=== PATIENT | male | born 1970 | race Caucasian/White ===

== ENCOUNTER 2024-06-07 05:38 | Emergency (ER) | payer BC, SELFPAY ==
[2024-06-07 05:42] VITALS: BP 126/94
[2024-06-07 06:28] VITALS: BMI 30.6
--- NOTE | 2024-06-07 07:05 | EDRN ---
Dr. Ross in room w/ pt at this time.
--- NOTE | 2024-06-07 07:14 | ED.GENMED ---
History of Present Illness
General
Chief Complaint: Cold/Flu/URI Symptoms
Source: patient
Exam Limitations: none
Time Seen by Provider: 06/07/24 06:45
Nursing documentation reviewed up to this point in time: agreed with
History of Present Illness
History of Present Illness:
54-year-old male with history of TBI who presents to the emergency department for evaluation of cough, congestion, chest pain. Patient reports onset of symptoms Wednesday (3 days ago) and they have been constant since that time. He reports that
initially started with sore throat and nonproductive cough some mild achiness and congestion. He says that 2 days ago he started to have some pain in his chest with coughing and that yesterday this pain became more intense to the point that it is
limiting his coughing and breathing�he reports a sharp pain left parasternal region with coughing. He says that his cough has now become productive of frothy sputum. He denies any palpitations. He denies any abdominal pain, nausea, vomiting,
diarrhea�in fact has been mildly constipated. He denies any other complaints.
Past History
Past History
ED Past Medical History: Psychiatric (Depression)
ED Past Surgical History: Orthopedic (Back surgery)
Social History
Tobacco: Non-smoker
Alcohol: None
Drug: None
Living: with family
Review of Systems
Review of Systems
All Other Systems: ROS reviewed and negative except as documented in HPI and ROS
Constitutional: Reports fatigue; Denies fever or chills
EENT: Reports sore throat and runny nose
Respiratory: Reports cough and trouble breathing
Cardiac: Reports chest pain; Denies diaphoresis or palpitations
ABD/GI: Reports constipated; Denies abdominal pain, nausea, vomiting or diarrhea
: Denies flank pain
Musculoskeletal: Reports muscle pain; Denies neck pain or back pain
Neurological: Denies dizzy or headache
Phy Exam
Physical Exam
Physical Exam:
General: Awake, alert, oriented x3; no acute distress
Head: Normocephalic, atraumatic
Eyes: Conjunctiva normal
Throat: Airway intact, handling secretions, no tonsillar erythema or exudate
Neck: Trachea midline, supple without meningismus
Lungs: Clear to auscultation bilaterally, no wheezing, rales, rhonchi
Heart: Regular rate and rhythm, no murmurs, gallops, or rubs; mild tenderness left parasternal
Abd: Soft, non distended, nontender
Neuro: No gross deficits
Skin: no rash
Extremities: No edema in extremities, equal pulses in all extremities
Scores
Heart Failure Risk
Heart Failure Risk Score: Not Applicable
Heart Score for Chest Pain Patients
STEMI patient?: No
History: Slightly or Non-Suspicious
ECG: Normal
Age: </= 45 years
Risk Factors: No Risk Factors
Troponin: </= Normal Limit
Heart Score for Chest Pain Patients: 0
Heart Score Risk: 2.5% MACE over next 6 weeks
Withdrawal Assessment of Alcohol
Withdrawal Assessment Completed?: Not applicable
Course
Orders/Labs/Results
Orders:
Orders
06/07/24 05:44
Electrocardiogram (*1) Urgent
Reason for Study: Shortness of Breath
CR Chest - 2 Views Urgent
Comment:
Reason For Exam: CONGESTION/COUGH
06/07/24 05:45
EKG- Treatment ONCE
06/07/24 05:56
INF RAPID [Influenza A+B Rapid Molecular] Urgent
PADDY Source: Nasal Swab
Specimen Description:
06/07/24 07:09
Doxycycline [Vibramycin] 100 mg PO NOW STA
Ketorolac [Toradol] 15 mg IV NOW STA
06/07/24 08:06
COVID-19 Antigen Urgent
Source: Nasal Swab
Complete Blood Count/With Diff Urgent
Comprehensive Metabolic Panel Urgent
Troponin I Urgent
Abnormal Lab Results
06/07/24
08:06
Absolute Lymphs (auto) 0.9 L 10^3/uL
(1.2-3.4)
Neutrophils % 78.0 H %
(42.2-75.2)
Lymphocytes % 13.4 L %
(20.5-51.1)
Glucose 100 H mg/dl
(70-99)
06/07/24 08:06
06/07/24 08:06
Vital Signs
Initial and Last Documented VS:
Initial Vital Signs
Temp Pulse Resp BP Pulse Ox
37.1 C 66 20 126/94 98
06/07/24 05:42 06/07/24 05:42 06/07/24 05:42 06/07/24 05:42 06/07/24 05:42
Last Documented Vital Signs
Temp Pulse Resp BP Pulse Ox
37.8 C 68 16 130/74 95
06/07/24 10:03 06/07/24 10:03 06/07/24 08:00 06/07/24 10:03 06/07/24 10:03
MDM/Problems Addressed
Differential Diagnosis Includes:
Chest pain: Bronchitis, pneumonia, pleurisy, costochondritis, pericarditis/myocarditis; very low clinical suspicion for PE, aortic dissection and in my judgment no further workup for these diagnoses indicated at this point in time
Cough/URI symptoms: Viral URI, bronchitis, pneumonia
MDM/Problems Addressed:
54-year-old male presents for evaluation of cough becoming increasingly productive associated with congestion and chest pain with coughing. Vitals normal. He had a chest x-ray done in triage reviewed by me shows no clear pneumonia, no
pneumothorax. EKG shows sinus rhythm with no acute ischemic changes. Will send basic labs including a CBC and a CMP and check troponin and an abundance of caution although very low suspicion for ACS. Suspect patient likely has mild bronchitis
versus early pneumonia with associated pleurisy or costochondritis. Will treat with Toradol, treat with empiric antibiotics for possible early pneumonia given increasingly productive cough. Will reassess after the above.
Labs reviewed: CBC and CMP unremarkable, troponin undetectable. COVID and flu negative. Chest x-ray no acute disease. Clinical reassessment pain greatly improved with Toradol. With change in cough cover for developing pneumonia. Benzonatate for
cough. NSAIDs for chest pain as needed. Stable for discharge. Patient comfortable this plan. All questions answered.
*Radiology
Radiology exam reviewed: preliminary read by ED provider (No acute disease)
*Pulse Oximetry
Patient hypoxic: no
*EKG
Interpreted by ED Provider?: Yes
Heart Rate: 57
Rate: bradycardiac
Rhythm: sinus
[place]: normal axis
Interval: normal interval
QRS Pattern: normal QRS
Ischemia: no ischemia
*Critical Care Note
Total Time (30-74mins, 75-104mins- exclusive of procedures): Not Applicable
Data Reviewed
Review of Other/Old Records Reveals: Labs and Records
Source: patient and records
ED Attending Note
-
Portions of this chart may have been created with voice recognition software.� Occasional wrong word or��sound alike� substitutions may have occurred due to the inherent limitations of voice recognition software.
Discharge Plan
Departure
Patient Disposition: Home (Routine Discharge)
Date of Disposition: 06/07/24
Time of Disposition: 10:14
Patient with high blood pressure during this ER visit?: No
Discharge Problem:
Bronchitis, Pleurisy
Instructions: Acute Bronchitis, Adult (DC), Pleuritic Chest Pain ED
Prescriptions:
New
doxycycline monohydrate 100 mg capsule
100 mg PO BID Qty: 14 0RF
benzonatate 200 mg capsule
200 mg PO TID PRN (Reason: Cough) Qty: 20 0RF
No Action
sertraline [Zoloft] 25 mg Tablet
75 mg PO DAILY
memantine [Namenda XR] 28 mg Capsule,Sprinkle,Er 24hr
28 mg PO HS
Referrals:
Julio César Olvera MD [Family Provider] - Follow up in 2-3 days
Activity Restrictions/Additional Instructions:
Thank you for visiting the Emergency Department at [facility].
1. Please schedule a follow up appointment as directed. Call first thing tomorrow morning to make an appointment.
2. If indicated, please take your medications as instructed and indicated on discharge paperwork.
3. If any of your symptoms do not improve, or persist, or become more severe within 6-12 hours, please return to the emergency department for further care.
4. Please return to the emergency department if you develop a headache, neck pain/stiffness, fever greater than 100.4F, chest pain, shortness of breath, persistent nausea, vomiting, slurred speech, difficulty walking, numbness/tingling, weakness,
signs of infection or any other symptoms that are worrisome to you.
Please call [phone] if you have any questions.
Interventions
Interventions:
*Risk Screen - Suicide Last Done: 06/07/24 05:42
*Neglect/Abuse Screening Last Done: 06/07/24 05:42
ED- Fall Risk Assessment Last Done: 06/07/24 06:29
*ED COVID-19 Vaccine History Last Done: 06/07/24 06:29
ED- Pulmonary Assessment Last Done: 06/07/24 08:00
Discharge Date and Time
Print Language: SAMOAN
[2024-06-07 08:00] VITALS: BP 121/71
[2024-06-07 09:17] LABS: % Basophils 0.3 % (0-2); % Immature Granulocytes 0.3 % (0-0.5); % Lymphocytes 13.4 % (20.5-51.1); Absolute Eosinophils 0.1 10^3/uL (0-0.7); Absolute Lymphocytes 0.9 10^3/uL (1.2-3.4); Absolute Monocytes 0.5 10^3/uL (0.1-0.6); Absolute Neutrophils 5.2 10^3/uL (1.4-6.5); Hematocrit 44.8 % (39.0-52.0); Hemoglobin 15.6 g/dL (13.0-18.0); Mean Corp Hgb Conc. 34.8 g/dL (33.0-37.0); Mean Corpuscular Hgb 30.5 pg (27.0-31.0); Mean Corpuscular Volume 87.7 fL (80.0-94.0); Mean Platelet Volume 10.1 fL (7.4-10.4); Nucleated Red Blood Cells % 0 % (-); Platelet Count 229 10^3/uL (130-400); Red Blood Cell Count 5.11 10^6/uL (4.70-6.10); Red Cell Dist. Width 12.8 % (11.5-14.5); White Blood Cell Count 6.7 10^3/uL (4.8-10.8)
[2024-06-07] MEDS: TORADOL 15 MG IV (09:22)
[2024-06-07] MEDS: VIBRAMYCIN 100 MG PO (09:23)
[2024-06-07 09:33] LABS: ALT (SGPT) 21 U/L (0-50); AST (SGOT) 22 U/L (17-59); Albumin 4.7 g/dl (3.5-5.0); Alkaline Phosphatase 39 U/L (38-126); Blood Urea Nitrogen 15 mg/dl (9-20); Calcium 9.1 mg/dl (8.4-10.2); Carbon Dioxide 25 mmol/L (22-30); Chloride 104 mmol/L (98-107); Estimated Creatinine Clearance 96 ml/min; Glucose 100 mg/dl (70-99); Potassium 4.2 mmol/L (3.5-5.1); Sodium 139 mmol/L (135-145); Total Bilirubin 0.6 mg/dl (0.2-1.3); eGFR > 60.00
[2024-06-07 09:44] LABS: Troponin I < 0.012 ng/ml
[2024-06-07 09:46] LABS: COVID-19 Antigen Negative (Negative)
--- NOTE | 2024-06-07 09:50 | EDRN ---
After okayed by Dr. Ross pt given cup of charley amanda.
[2024-06-07 10:03] VITALS: BP 130/74
== END 2024-06-07 10:25 | disposition home or self-care (01) ==
LOC: EMR 05:38
PROVIDERS: EMERGENCY PHYSICIAN Emergency Medicine; FAMILY PHYSICIAN Family Medicine
DX: J40 Bronchitis, not specified as acute or chronic (principal); R09.1 Pleurisy; F32.A Depression, unspecified; Z87.820 Personal history of traumatic brain injury
CPT/HCPCS: 99283; 96374; 71046; 80053; 84484; 85025; 87502; 87811; 93005